=== PATIENT | female | born 1940 | race Caucasian/White ===

== ENCOUNTER → 2018-06-27 | Outpatient (CLI) | payer MEDICARE | END | disposition home or self-care (01) | LOC: LAB 12:45 → LAB SHORT 12:45 | DX: N39.0 Urinary tract infection, site not specified (principal) | CPT/HCPCS: 87077; 87086; 87186 ==

== ENCOUNTER 2021-03-10 11:04 | Inpatient (IN) | payer OTHER ==
[~2021-03-10] VITALS: Ht 170.2 cm; Wt 75.9 kg
[~2021-03-10 11:04] MED LIST: ONDA4ODT MM
[2021-03-10 11:30] LABS: BASOPHILS ABSOLUTE AUTO 0.02 K/mm3 (0.00-0.23); BASOPHILS PERCENT AUTO 0 % (0-2); EOSINOPHILS PERCENT AUTO 0 % (0-6); Hematocrit 40.3 % (33.0-51.0); Hemoglobin 13.3 g/dL (11.5-16.0); IMMATURE GRAN ABSOLUTE AUTO 0.12 K/mm3 (0.00-0.10); IMMATURE GRAN PERCENT AUTO 1 % (0-1); LYMPHOCYTES ABSOLUTE AUTO 0.71 K/mm3 (0.84-5.20); LYMPHOCYTES PERCENT AUTO 8 % (21-46); MONOCYTES PERCENT AUTO 4 % (4-13); Mean Corpuscular HGB 28.8 pg (26.0-34.0); Mean Corpuscular Volume 87 fL (80-100); Mean Platelet Volume 8.9 fL (9.1-12.4); NEUTROPHILS ABSOLUTE AUTO 8.15 K/mm3 (1.96-9.15); NEUTROPHILS PERCENT AUTO 87 % (41-73); Platelet Count 402 K/mm3 (150-400); RDW Standard Deviation 41.1 fL (35.1-46.3); Red Blood Cell Count 4.62 M/mm3 (3.80-5.20)
[2021-03-10 11:50] LABS: Magnesium, Blood 1.7 mg/dL (1.6-2.4); Troponin I <0.015 ng/mL (0.000-0.040)
[2021-03-10 11:51] LABS: Anion Gap 5 mmol/L (6-16); Blood Urea Nitrogen 19 mg/dL (8-24); Bun/Creatinine Ratio 30.7 (12.0-20.0); CO2, Blood 28 mmol/L (21-32); Calcium, Blood 10.2 mg/dL (8.5-10.1); Chloride, Blood 106 mmol/L (98-108); Creatinine, Blood 0.62 mg/dL (0.40-1.00); Glomerular Filtration Rate >60 (60-); Glucose, Blood 102 mg/dL (70-99); Potassium, Blood 3.7 mmol/L (3.5-5.5); Sodium, Blood 139 mmol/L (136-145)
[2021-03-10 13:56] LABS: Source, Urine Clean Catch
[2021-03-10 14:14] LABS: Appearance, Urine Clear (Clear); Bilirubin, Urine Neg (Neg); Blood, Urine Neg (Neg); Color, Urine Yellow (P-Yellow); Glucose Qualitative, Urine Neg (Neg); Ketones, Urine Neg (Neg); Leukocyte Esterase, Urine Neg (Neg); Nitrite, Urine Neg (Neg); Protein, Urine Neg (Neg); Urobilinogen, Urine NORM (Normal); pH, Urine 6.5 (5.0-8.0)
[2021-03-10] MEDS ORDERED: XARELTO20 MG PO (15:51)
[2021-03-10] MEDS ORDERED: PRED20 PO (15:52)
[2021-03-10 15:59] LABS: Influenza A, PCR NEGATIVE (NEGATIVE); Influenza B, PCR NEGATIVE (NEGATIVE); Resp Syncytial Virus, PCR NEGATIVE (NEGATIVE)
[2021-03-10 16:32] LABS: SARS-Cov-2 (COVID-19) PCR, MMC POSITIVE (NEGATIVE)
--- NOTE | 2021-03-10 16:36 | NUR ---
Pt arrived to 359 via gurney from ED. a/ox3, pleasant and cooperative with care, follows commands well, denies pain or sob while laying still, gets quite dyspnic with exertion, currently on 3 liters, sats 96%, denies cough, lungs are very dim t/o, auscultate more air movement in upper [place], no chest pain, hrr, bounding, no edema noted, ppp faint, cap refill<3sec, vs stable, afebrile, iv site to rfa site is clear and patent, btx4, abd flat soft nontender, voids without diff, skin c/w/d, maew, joni, oriented to room layout and call system, call light in reach.
--- NOTE | 2021-03-10 18:24 | NUR ---
pt states she's doing ok, no changes in condition. doing well on 3 liters, call light in reach.
[2021-03-11 05:47] LABS: Hemoglobin 12.6 g/dL (11.5-16.0); Mean Corpuscular HGB Conc 33.2 g/dL (31.5-36.5); Mean Corpuscular Volume 88 fL (80-100); Platelet Count 421 K/mm3 (150-400); RDW Coefficient Variation 12.8 % (11.7-14.2); RDW Standard Deviation 41.1 fL (35.1-46.3); Red Blood Cell Count 4.34 M/mm3 (3.80-5.20); White Blood Cell Count 8.32 K/mm3 (4.00-11.30)
[2021-03-11 06:49] LABS: Anion Gap 8 mmol/L (6-16); Blood Urea Nitrogen 20 mg/dL (8-24); Bun/Creatinine Ratio 33.1 (12.0-20.0); CO2, Blood 28 mmol/L (21-32); Calcium, Blood 9.6 mg/dL (8.5-10.1); Chloride, Blood 103 mmol/L (98-108); Glomerular Filtration Rate >60 (60-); Glucose, Blood 102 mg/dL (70-99); Potassium, Blood 4.4 mmol/L (3.5-5.5); Sodium, Blood 139 mmol/L (136-145)
--- NOTE | 2021-03-11 07:01 | NUR ---
PATIENT WAS ALERT AND ALERT X4, STABLE VITAL SIGNS, NO ACUTE CHANGES, 3L 02, 1 PRESON ASSIST. PATIENT DENIED ANY PAIN. CALL LIGHT WITH IN REACH, BED DOWN TO THE LOWEST POSITION. WILL CONTINUE TO MONITOR UNTIL HAND OFF.
--- NOTE | 2021-03-11 11:21 | NUR ---
Pt. was alert and sitting up in a chair. Pt. welcomed my visit. Established Rapport. Pt. Was unsettled regarding the recent passing of her (late 2020). Pt. also shared about a son who is working internationally. His work status keeps him from being able to return, and that is a weighty concern for him. Listened empathetically, and provided some grief support to the pt. Pt. has a solid nella. The pt. demonstratred appropriate catharsis and increased resolve to get well. Pt. verbalized gratitude for the care she is receiveing and for my visit. Pt. welcomed a return visit. I will monitor.
--- NOTE | 2021-03-11 15:54 | NUR ---
SHIFT SUMMARY PT IS AOX4 AND PLEASANT. PT DENIES PAIN, N/V. PT REMAINS ON 3 L O2 VIA NC AND REQUIRED 5 L VIA NC WHILE AMBULATING WITH PT. PT REMAINS SBA WITH BRP. PT APPETITE IS GOOD THIS SHIFT. PT DID NOT HAVE VISITORS. ENHANCED ISOLATION MAINTAINED T/O SHIFT. PT UP TO CHAIR T/O SHIFT. PT IS IN BED, CALL LIGHT IN REACH, LOW POSITION.
--- NOTE | 2021-03-12 06:03 | NUR ---
PATIENT WAS ALERT AND ORIENTED X4, STABLE VITAL SIGNS, NO ACUTE CHANGES. 3L 02. PATIENT SLEPT FOR MOST OF THE NIGHT. CALL LIGHT WITH IN REACH AND BED DOWN TO THE LOWEST POSITION. WILL CONITUE TO MONITOR UNTIL HAND OFF.
--- NOTE | 2021-03-12 16:39 | NUR ---
Pt. was alert and reclining in her bed. Pt. welcomed me to visit. Re-established rapport. Pt. verbalized he encouragement with my visit. Overall the pt. displayed evidence of being content and aware of her improving condition. Pt. described herself as feeling glum. Explored what aniceto and purpose look like in her life. Pt. displayed engagement and a healthy perspective on what brings her aniceto. Pt. verbalized being encouraged and that my presence was "like a ray of sunshine" in her day. Prayed with pt. Will continue to monitor.
--- NOTE | 2021-03-13 04:58 | NUR ---
PATIENT HAD AN UNEVENTFUL NIGHT. A&O X4. INDEPENDENT IN ROOM. HAS A WET COUGH THAT IS NONPRODUCTIVE. WHEEZES IN THE BASES OF LUNGS. DID BLAZE DESAT THIS MORNING AFTER AMBULATING TO AND FROM THE RESTROOM. CURRENTLY ON 3L O2/NC. VITALS REVIEWED. CALL LIGHT IN REACH.
[2021-03-13 09:46] LABS: BASOPHILS ABSOLUTE AUTO 0.04 K/mm3 (0.00-0.23); BASOPHILS PERCENT AUTO 0 % (0-2); EOSINOPHILS ABSOLUTE AUTO 0.06 K/mm3 (0.00-0.68); EOSINOPHILS PERCENT AUTO 1 % (0-6); Hematocrit 40.6 % (33.0-51.0); Hemoglobin 13.2 g/dL (11.5-16.0); IMMATURE GRAN ABSOLUTE AUTO 0.31 K/mm3 (0.00-0.10); IMMATURE GRAN PERCENT AUTO 3 % (0-1); LYMPHOCYTES ABSOLUTE AUTO 2.82 K/mm3 (0.84-5.20); LYMPHOCYTES PERCENT AUTO 23 % (21-46); MONOCYTES ABSOLUTE AUTO 0.37 K/mm3 (0.16-1.47); MONOCYTES PERCENT AUTO 3 % (4-13); Mean Corpuscular HGB 28.5 pg (26.0-34.0); Mean Corpuscular HGB Conc 32.5 g/dL (31.5-36.5); Mean Corpuscular Volume 88 fL (80-100); Mean Platelet Volume 8.7 fL (9.1-12.4); NEUTROPHILS ABSOLUTE AUTO 8.68 K/mm3 (1.96-9.15); NEUTROPHILS PERCENT AUTO 71 % (41-73); Platelet Count 520 K/mm3 (150-400); RDW Coefficient Variation 12.9 % (11.7-14.2); Red Blood Cell Count 4.63 M/mm3 (3.80-5.20); White Blood Cell Count 12.28 K/mm3 (4.00-11.30)
[2021-03-13 10:14] LABS: Anion Gap 9 mmol/L (6-16); Blood Urea Nitrogen 25 mg/dL (8-24); Bun/Creatinine Ratio 35.9 (12.0-20.0); CO2, Blood 29 mmol/L (21-32); Calcium, Blood 9.4 mg/dL (8.5-10.1); Chloride, Blood 102 mmol/L (98-108); Glomerular Filtration Rate >60 (60-); Glucose, Blood 147 mg/dL (70-99); Potassium, Blood 3.8 mmol/L (3.5-5.5); Sodium, Blood 140 mmol/L (136-145)
--- NOTE | 2021-03-13 17:23 | NUR ---
Pt. was alert and in bed. Quickly re-established rapport. Explored issues of nella and belief. Pt. shared stress of having lost her (in the past 10 days) and not being able to take care of details and arrangements. Listen Empathetically and asked clarifying questions. Pt. displayed reduced stress when someone from the home had called. Pt. also displayed some gentle catharsis attributed the relief. Provided spiritual dirfection and pastoral counseling. Pt. verbalized the comfort she recieves from spiritual care visits. Prayed with pt. I will monitor.
--- NOTE | 2021-03-13 18:00 | NUR ---
PT A&OX4. MAKES NEEDS KNOWN APPROPRIATELY. NOTED SOB WITH ACTIVITY. SPO2 93-94%. MAINTAINED ON 3L NC O2. CXR DONE THIS SHIFT; RESULT PENDING. MEDICATED PER MAY. NO DISTRESS. WILL CONTINUE TO MONITOR
--- NOTE | 2021-03-14 16:57 | NUR ---
Pt. was alert and uprightin bed. Pt. welcomed my visit. Pt. was excited to announce she was going home the next day. There was not obvious spiritual stressor. Explored nella and belief, and provided some anticipatory grief guidance. (Pt. passed around [place]). Pt. will have a friend at home with her for awhile. Reinforced helpful attitudes and expectations as she gets settled in her "newer" community. Pt. showed evidence of restored nella, and increased courage as she steps back into life, but without her . Pt. verbalized encouragement, agreement, and resolve to prepare for a very different life when she is discharged. Prayed with Pt.
--- NOTE | 2021-03-14 18:14 | NUR ---
SHIFT SUMMARY PATIENT SITTING IN CHAIR EATING DINNER. PATIENT INDEPENDENT IN ROOM. ON 3L NC. VITAL SIGNS STABLE. NO SIGNIFICANT EVENTS T/O SHIFT. PLAN TO DISCHARGE TOMORROW. CALL LIGHT WITHIN REACH. WILL CONTINUE TO MONITOR.
[2021-03-15] MEDS ORDERED: SENN187 PO (10:24)
[2021-03-15] MEDS ORDERED: DEXA6 PO (10:24)
[2021-03-15] MEDS ORDERED: ASPI81CH PO (10:24)
--- NOTE | 2021-03-15 15:20 | NUR ---
PT DISCHARGED AT 1455 WITH FRIEND TO TRANSPORT. PT AOX4 AND COOPERATIVE OF CARE.PT HAD HOME O2 EVAL COMPLETED AND O2 WAS NEEDED. [facility] DROPPED OF PORTIBLE O2 TANK FOR PT'S DISCHARGE PRIOR TO LEAVING. PT HAD ALL PAPERWORK AND EDUCATIONAL MATERIAL REVIEWED. NO DISTRESS NOTED. ESCORTED OUT VIA WHEELCHAIR.
== END 2021-03-15 15:18 | disposition home or self-care (01) | DRG 177 ==
LOC: ER 11:04 → MEDS 13:05 → ERHOLD 13:05 → MEDS 15:40
PROVIDERS: Internal Medicine; Student in an Organized Health Care Education/Training Program; ADMIT Internal Medicine
PROC: 8E0ZXY6 Isolation (ICD-10-PCS; principal; 2021-03-10)
PROC: 3E0333Z Introduction of Anti-inflammatory into Peripheral Vein, Percutaneous Approach (ICD-10-PCS; 2021-03-10)
PROC: XW033E5 Introduction of Remdesivir Anti-infective into Peripheral Vein, Percutaneous Approach, New Technology Group 5 (ICD-10-PCS; 2021-03-10)
DX: U07.1 COVID-19 (principal); J12.82 Pneumonia due to coronavirus disease 2019; J96.01 Acute respiratory failure with hypoxia; Z66 Do not resuscitate; E86.0 Dehydration; J43.9 Emphysema, unspecified; Z53.20 Procedure and treatment not carried out because of patient's decision for unspecified reasons; Z90.710 Acquired absence of both cervix and uterus; Z87.891 Personal history of nicotine dependence; Z79.899 Other long term (current) drug therapy
CPT/HCPCS: 0241U; 36415; 71045; 71260; 80048; 81003; 83735; 83880; 84145; 84484; 85025; 85027; 93005; 93010; 94760; 94761; 96374; 96375; 97112; 97162; 97165; 97530; 97535; 99285-25; A9270; J1100; J1650; J7050; Q9967

== ENCOUNTER 2021-03-25 12:20 | Emergency (ER) | payer OTHER ==
[~2021-03-25] VITALS: Ht 170.2 cm; Wt 74.8 kg
[~2021-03-25 12:20] MED LIST changes: -COLCHICINE0.6 MG PO
[2021-03-25] MEDS ORDERED: COLCHICINE0.6 MG PO (15:12)
== END 2021-03-25 15:30 | disposition home or self-care (01) ==
LOC: ER 12:20
DX: M25.571 Pain in right ankle and joints of right foot (principal); J43.9 Emphysema, unspecified; Z79.899 Other long term (current) drug therapy; Z87.891 Personal history of nicotine dependence
CPT/HCPCS: 93971; 99283-25

== ENCOUNTER → 2021-03-25 | Outpatient (CLI) | payer OTHER ==
[~2021-03-25] MED LIST changes: +ASPI81CH PO; +COLCHICINE0.6 MG PO; +DEXA6 PO; +PRED20 PO; +SENN187 PO; +XARELTO20 MG PO
== END ==
LOC: LAB SHORT 10:41
DX: R30.0 Dysuria (principal)
CPT/HCPCS: 87086

== ENCOUNTER → 2022-10-06 | Outpatient (CLI) | payer OTHER ==
[~2022-10-06] MED LIST changes: +COLCHICINE0.6 MG PO
== END ==
LOC: LAB SHORT 18:55 → LAB 18:55
DX: N39.0 Urinary tract infection, site not specified (principal)
CPT/HCPCS: 87077; 87086; 87186